=== PATIENT | female | born 1955 | race Caucasian/White ===

== ENCOUNTER 2023-12-25 04:31 | Day surgery (SDC) | payer OTHER ==
[2023-12-21 13:48] VITALS: BMI 28.6
[2023-12-25 08:37] VITALS: TEMP 98
[2023-12-25 09:09] VITALS: BP 129/72; PULSE 74; RESP 15
== END 2023-12-25 10:27 | disposition home or self-care (01) ==
LOC: JASU-ENDO 04:31
PROVIDERS: ATTEND Internal Medicine Gastroenterology
PROC: 0DB78ZX Excision of Stomach, Pylorus, Via Natural or Artificial Opening Endoscopic, Diagnostic (ICD-10-PCS; 2023-12-25)
PROC: 0DB68ZX Excision of Stomach, Via Natural or Artificial Opening Endoscopic, Diagnostic (ICD-10-PCS; 2023-12-25)
PROC: 0DB98ZX Excision of Duodenum, Via Natural or Artificial Opening Endoscopic, Diagnostic (ICD-10-PCS; principal; 2023-12-25 08:00)
DX: K29.50 Unspecified chronic gastritis without bleeding (principal); K44.9 Diaphragmatic hernia without obstruction or gangrene; K21.9 Gastro-esophageal reflux disease without esophagitis
CPT/HCPCS: 88305-TC; 88342-TC

== ENCOUNTER 2024-04-18 04:08 | Day surgery (SDC) | payer OTHER ==
[2024-04-14 17:19] VITALS: BMI 27.6
[2024-04-18] MEDS ORDERED: MIDAZOLAM HCL 2 MG/2 ML SINGLE DOSE VIAL ONE (08:46)
[2024-04-18] MEDS: ONDANSETRON 2 MG/1 ML - 20ML MDV IVPB ONE (10:30)
[2024-04-18 10:36] VITALS: RESP 20
[2024-04-18] MEDS: ACETAMINOPHEN 325 MG TABLET (FP) PO ONE (11:50)
[2024-04-18 12:02] VITALS: BP 132/79; PULSE 69; TEMP 97.1
== END 2024-04-18 13:48 | disposition home or self-care (01) ==
LOC: JASU-SURG 04:08
PROVIDERS: ATTEND Urology
PROC: 0TF4XZZ Fragmentation in Left Kidney Pelvis, External Approach (ICD-10-PCS; principal; 2024-04-18 08:53)
DX: N20.0 Calculus of kidney (principal)
CPT/HCPCS: J2405